=== PATIENT | female | born 1935 | race Caucasian/White ===

== ENCOUNTER 2016-03-30 17:39 | Inpatient (IN) | payer MEDICARE ==
[~2016-03-30] VITALS: Ht 170.2 cm; Wt 85.0 kg
--- NOTE | 2016-03-31 16:45 | HP ---
ADMIT: 03/30/2016 RM/LOC: 521 [facility] MR#: [id number] [address] [address] PRISCA ANTONIO [address] [place] [address] History and Physical SEX: F AGE: 81 : 1935 DATE OF SERVICE: CHIEF COMPLAINT: Weakness, lightheadedness. HISTORY OF PRESENT ILLNESS: The patient is a fantastic 81-year-old female, well-known to me from clinic. Recently had been having increasing weakness, dizziness, orthostasis. Really worsening over the last 2 weeks. I saw her in the office 2 weeks ago, we slowly been down titrating her blood pressure medications. She stopped these entirely. Her dizziness and lightheadedness got much worse today. Had a hemoglobin over in the office was 8.3. The patient otherwise denies any recent fevers, chills, nausea, vomiting. Normal oral intake. Now reports she has had a history over the last 6 weeks or so of maroon-colored stools, intermittent diarrhea, and constipation. She was in the emergency room in November after recent initiation of Eliquis for her newly discovered AFib with an episode of lower GI bleed at that time. It was there for a short period of time, this sounds like she had gotten better when she had held her Eliquis for a short period of time. Otherwise, denies any new palpitations. No unexpected weight loss. No unexpected abdominal pain. PAST MEDICAL HISTORY: 1. AFib. 2. History of solitary kidney, status post nephrectomy. 3. Hypertension. 4. Hyperlipidemia. 5. Chronic kidney disease, stage 3. 6. History of Polo's esophagus. 7. Diet-controlled diabetes, type 2. 8. GERD. 9. Osteoporosis. 10.History of renal cell carcinoma, status post nephrectomy. MEDICATIONS: She is on: 1. Eliquis 2.5 mg b.i.d. 2. Aspirin 81 mg a day. 3. Atenolol 25 mg a day. 4. Atorvastatin. 5. Vitamin D. 6. Nexium. 7. She has recently been holding her iron. 8. Flecainide 50 mg p.o. b.i.d. 9. Hyzaar, but she recently stopped this. ALLERGIES: PENICILLIN, SULINDAC, VOLTAREN. PAST SURGICAL HISTORY: She has history of nephrectomy, appendectomy, tonsillectomy, cataracts. FAMILY HISTORY: Significant for heart disease in her father. Ovarian cancer in her sister as well as another sister with thyroid cancer. Brother with ADMIT: 03/30/2016 RM/LOC: 521 [facility] MR#: [id number] [address] [address] PRISCA ANTONIO [address] [place] [address] History and Physical SEX: F AGE: 81 : 1935 esophageal cancer and at age 55. No known history of colon cancer. SOCIAL HISTORY: Former smoker many, many years ago. Lives home alone. REVIEW OF SYSTEMS: As per HPI. Otherwise, completely reviewed and negative. PHYSICAL EXAMINATION: VITAL SIGNS: Blood pressure 136/57, pulse 73, respiratory rate 22, O2 sat 98% on room air. GENERAL: She is alert and oriented x3, in no acute distress, pleasant as always. HEENT: Normocephalic, atraumatic. Pupils are equal, round, and reactive to light and accommodation. Extraocular muscles intact. Dry mucous membranes. NECK: No lymphadenopathy. Trachea midline. LUNGS: Clear to auscultation bilaterally. No wheezes, rales, or rhonchi. HEART: Regular rate and rhythm. No murmurs, rubs, or gallops. ABDOMEN: Soft, nontender, nondistended. Bowel sounds present. EXTREMITIES: No cyanosis, clubbing, or edema. MUSCULOSKELETAL: 5/5 strength in all 4 extremities. NEUROLOGICAL: No focal deficits noted. Cranial nerves II through XII grossly intact. LABORATORY AND X-RAY DATA: Her hemoglobin here is 8.2, creatinine is 1.5. Other lab work reviewed. ASSESSMENT: 1. Gastrointestinal bleed, likely lower gastrointestinal bleed. 2. Atrial fibrillation. 3. Solitary kidney with chronic kidney disease, stage 3. 4. Hypertension. 5. Diet-controlled diabetes. PLAN: At this point in time, we will hold her anticoagulation. We will watch serial hemoglobins. She had one at noon today and again one this evening. We will check one in the morning. If it drops, we will give her transfusion. I attempted to give her transfusion even if worse given her symptoms of ADMIT: 03/30/2016 RM/LOC: 521 [facility] MR#: [id number] [address] [place] [id number] PRISCA ANTONIO [address] [place] [address] History and Physical SEX: F AGE: 81 : 1935 orthostasis. We will see if that improves with some hydration overnight. Also, hydrate her in anticipation for prep. Given her worsening symptoms and her ongoing maroon stools over the last couple weeks, I think she will likely warrant colonoscopy. This is why General Surgery see her. She should get it done while inpatient given the severity of symptoms at home and ongoing bleeding. We will hold her anticoagulation indefinitely until this is taken care of, and we will otherwise continue to hold her antihypertensives for the time being. Continue her antiarrhythmics for atrial fibrillation. The patient is understanding and agreeable We will see what Surgery has to say about this plan for this extremely fantastic woman. Timmy Griffin MD/ vince JOB #: [id number] CC: Timmy Griffin, Attending Physician Timmy Griffin, Family Physician
--- NOTE | 2016-04-07 10:08 | CO ---
ADMIT: 03/30/2016 RM/LOC: 521 [facility] MR#: [id number] [address] [address] PRISCA KRAUSE [address] [place], [place] [address] Consultation SEX: F AGE: 81 : 1935 DATE OF CONSULTATION: 03/31/2016 ATTENDING PHYSICIAN: Timmy Griffin CONSULTING PHYSICIAN: Pavan Krause MD REASON FOR VISIT: Anemia with GI bleed. HISTORY OF PRESENT ILLNESS: This patient is an 81-year-old female, basically came in because she was feeling weak and lightheaded, found to have a hemoglobin over at the [facility] office of 8.3, and now in the high 6 range of 6.8. She had been having some intermittent diarrhea, constipation, some maroon stools. She is on Eliquis for atrial fibrillation that was recently discovered. She had some bleeding when they originally put her on that. They stopped it, did improve and put her back on it. She also has a history of previous nephrectomy and solitary kidney, hypertension, hyperlipidemia, history of Polo esophagus, GERD, osteoporosis, and diabetes. CURRENT MEDICATIONS: Please see chart, but she is on: 1. Chronic Nexium. 2. Eliquis. 3. Aspirin. 4. Atenolol. 5. Atorvastatin. 6. Vitamin D. 7. Flecainide. 8. Hyzaar. ALLERGIES: VOLTAREN, SULINDAC, AND PENICILLIN. PAST SURGICAL HISTORY: She has also had appendectomy, tonsillectomy, cataract, and she has had several scopes, her last one being by myself here in 2013 that was normal as well as an upper scope as well. FAMILY HISTORY: She has a brother with a history of esophageal cancer. No known colon cancer, I do not believe history. SOCIAL HISTORY: Smoked many years ago. Currently lives at home and is retired. REVIEW OF SYSTEMS: Positive for the above, but otherwise no chest pain or shortness of breath. PHYSICAL EXAMINATION: GENERAL: She is alert. She is oriented. Afebrile. VITAL SIGNS: Appear stable. HEENT: Her sclerae are nonicteric. Her extraocular muscles are intact. CHEST: Clear anteriorly. HEART: Regular rate and rhythm. ABDOMEN: Soft. No significant masses. No organomegaly. She does have an ADMIT: 03/30/2016 RM/LOC: 521 [facility] MR#: [id number] [address] [address] PRISCA KRAUSE [address] [place] [address] Consultation SEX: F AGE: 81 : 1935 incisional hernia from her previous nephrectomy, but no signs of obstruction or incarceration. EXTREMITIES: Without clubbing, cyanosis, or edema. ASSESSMENT/PLAN: Gastrointestinal bleed and anemia. At this point, she just came in at 3 in the morning with a low hemoglobin. She needs blood and some resuscitation and then we will look at bowel prep. I am not going to try bowel prep on her today in that condition and then hopefully plan on doing upper and lower scopes on . She has not been taking any ulcerogenic type medications, but we will look at her stomach as well with this history and should be a low chance of any kind of significant findings in the colon unless there is some AVM or diverticulum or something of that nature that would be bleeding. This all been discussed with her and Dr. Griffin. Pavan Krause MD/ vince JOB #: [id number] CC: Timmy Griffin, Attending Physician Timmy Griffin, Family Physician
--- NOTE | 2016-04-10 08:46 | DS ---
ADMIT: 03/30/2016 RM/LOC: 521 [facility] MR#: [id number] [address] [address] PRISCA KRAUSE [address] [place] [address] Discharge Summary SEX: F AGE: 81 : 1935 ADMISSION DATE: 03/30/2016 DISCHARGE DATE: 04/03/2016 CONSULTATIONS: Dr. Krause. PROCEDURE: She underwent endoscopy with intervention on an AVM in her colon. FINAL DIAGNOSES: 1. GI (gastrointestinal) bleed secondary to AVM (arteriovenous malformation) requiring transfusion. 2. Atrial fibrillation. 3. Acute blood loss anemia. 4. Diabetes type 2. REASON FOR ADMISSION: The patient is an 81-year-old female, presented to the emergency room after overall feeling worse and newfound anemia. Some melena. Admitted for further stabilization. HOSPITAL COURSE: The patient's hemoglobin was trended. She required transfusion on 2 occasions. Seen by general surgery. Underwent the above- mentioned colonoscopy. Found to have an AVM. He had intervention on it. Hemoglobin was watched. It improved. Stabilized. She felt safe and stable for discharge to home. DISCHARGE INSTRUCTIONS: Please see discharge MAR which I reviewed. FOLLOWUP: We will see her back to clinic shortly within a week or two. Repeat labs at followup. Timmy Griffin MD/ vdg JOB #: [id number] CC: Timmy Griffin MD, Attending Physician Timmy Griffin MD, Family Physician
--- NOTE | 2016-04-14 12:58 | ER ---
ADMIT: 03/30/2016 RM/LOC: 521 [facility] MR#: [id number] 2620 [facility] [address] [place] [address] PRISCA ANTONIO [address] [place] [address] Emergency Room Report SEX: F AGE: 81 : 1935 DATE: 03/30/2016 HISTORY OF PRESENT ILLNESS: An 81-year-old female who has had 2 or 3 weeks of dark tarry stools. No pain. No vomiting. Admittedly dark tarry stools. She saw her primary today, had labs drawn today and showed a hemoglobin of 8. She subsequently called the ambulance, comes here. [place] that she needed colonoscopy tonight. She states she just cannot "survive with a hemoglobin of 8 once she knew that." PAST MEDICAL HISTORY: Significant for atrial flutter. She has been on Eliquis. She apparently has had problems with GI bleeds in the past. She has had colonoscopies in the past. She states they have always been negative. She also has a history of renal cell cancer. PHYSICAL EXAMINATION: GENERAL: Reveals an elderly female, in no acute distress. She is pallorous. LUNGS: Clear to auscultation. CARDIOVASCULAR: Regular rate and rhythm. ABDOMEN: Soft, nontender, with positive bowel sounds. EXTREMITIES: Pallorous as mentioned. RESEARCH PROFESSIONAL: No focal findings. ASSESSMENT AND PLAN: The patient is being admitted with gastrointestinal bleed. Donald Davis MD/ vince JOB #: [id number] CC: Timmy Griffin MD, Attending Physician Timmy Griffin MD, Family Physician
--- NOTE | 2016-05-16 12:25 | OR ---
ADMIT: 03/30/2016 RM/LOC: 521 [facility] MR#: [id number] [address] [id number] PRISCA KRAUSE [address] [place] [address] Operative/Delivery Room Report SEX: F AGE: 81 : 1935 CORRECTED: 05/11/2016 1329 BRENT CORRECTED: 05/12/2016 1003 [facility] SURGERY DATE: 04/02/2016 SURGEON: Pavan Krause MD PREOPERATIVE DIAGNOSIS: Anemia, evidence of gastrointestinal bleed. POSTOP DIAGNOSIS: Normal-appearing esophagus, stomach, duodenum. Colon normal other then in picture 4 on the first set you can see an AVM in the proximal right colon. PROCEDURES: 1. EGD. 2. Colonoscopy with biopsies of this area of AVM. 3. Cauterization of this area of AVM and a Resolution clip was placed at this area of AVM. ANESTHESIA: MAC anesthesia. ESTIMATED BLOOD LOSS: 5 mL or less. INDICATION FOR PROCEDURE: Please see H and P. After the risks, benefits, possible complications, and the alternatives had been explained, and informed consent had been obtained, the patient was taken back to the procedure room, underwent sedation. The flexible EGD scope was introduced, slowly maneuvered down the esophagus. GE junction seen in the first picture and appears normal. Maneuvered through the stomach down into the second portion of the duodenum, seen in the third picture and it appears normal. I did not see any evidence of blood, mass, lesions, or ulcers within the duodenum, duodenal bulb, gastric antrum and body otherwise looked normal. She does have a few benign-appearing fundic gland polyps. No significant hiatal hernia. The scope was slowly withdrawn inspecting the remainder of the esophagus on the way out and that portion of the procedure was terminated. The flexible colonoscope was then introduced and slowly maneuvered all the way over to the cecum which was seen quite nicely in picture #1 and the ileocecal valve in the left lower corner of the picture there. I was able to make it into the terminal ileum quite nicely for quite a ways as seen in picture #2. Saw no signs of any blood or lesions anywhere there. Came back, picture 3 shows again the cecum just above it with the ileocecal valve about 6 o'clock position and then as you just come up a little bit above that fold, you can see this area of what appears to be an AVM in the proximal right colon there in picture #4. I actually did a biopsy and when I did that biopsy, this thing ADMIT: 03/30/2016 RM/LOC: 521 [facility] MR#: [id number] [address] [id number] PRISCA KRAUSE [address] [place] [address] Operative/Delivery Room Report SEX: F AGE: 81 : 1935 did bleed and bled pretty well. So I think this is the source. I was then able to cauterize it with the hot biopsy forceps. I then took a Resolution clip and placed it across the area, watched it for several minutes, saw no signs of any ongoing or continuing bleeding as seen in the second set of pictures, there. The remainder of the ascending, transverse, descending, sigmoid, and rectum otherwise appeared okay and normal. The scope was removed and the procedure terminated. Tolerated it well, was taken to recovery room in stable and satisfactory condition. Pavan Krause MD/ vince JOB #: [id number] CC: Timmy Griffin MD, Attending Physician Timmy Griffin MD, Family Physician Timmy Griffin MD CORRECTED: 05/11/2016 1329 BRENT CORRECTED: 05/12/2016 1003 [facility]
== END 2016-04-03 14:40 | disposition home or self-care (01) | DRG 982 ==
LOC: ER 17:39 → 5MS 19:10
PROVIDERS: ADMIT Internal Medicine
PROC: 30233N1 Transfusion of Nonautologous Red Blood Cells into Peripheral Vein, Percutaneous Approach (ICD-10-PCS; 2016-03-31)
PROC: 0DBF8ZX Excision of Right Large Intestine, Via Natural or Artificial Opening Endoscopic, Diagnostic (ICD-10-PCS; principal; 2016-04-02)
PROC: 0W3P8ZZ Control Bleeding in Gastrointestinal Tract, Via Natural or Artificial Opening Endoscopic (ICD-10-PCS; principal; 2016-04-02)
PROC: 0DJ08ZZ Inspection of Upper Intestinal Tract, Via Natural or Artificial Opening Endoscopic (ICD-10-PCS; principal; 2016-04-02)
PROC: 0DV Gastrointestinal System, Restriction (ICD-10-PCS; principal; 2016-04-02)
DX: Q27.33 Arteriovenous malformation of digestive system vessel (principal); I48.92 Unspecified atrial flutter; E11.22 Type 2 diabetes mellitus with diabetic chronic kidney disease; K92.1 Melena; D62 Acute posthemorrhagic anemia; R19.7 Diarrhea, unspecified; K59.00 Constipation, unspecified; I48.91 Unspecified atrial fibrillation; E78.5 Hyperlipidemia, unspecified; N18.3 Chronic kidney disease, stage 3 (moderate); I12.9 Hypertensive chronic kidney disease with stage 1 through stage 4 chronic kidney disease, or unspecified chronic kidney disease; K22.70 Barrett's esophagus without dysplasia; K21.9 Gastro-esophageal reflux disease without esophagitis; M81.0 Age-related osteoporosis without current pathological fracture; Z79.82 Long term (current) use of aspirin; Z90.5 Acquired absence of kidney; Z85.528 Personal history of other malignant neoplasm of kidney; Z87.891 Personal history of nicotine dependence

== ENCOUNTER 2016-04-05 14:06 | Inpatient (IN) | payer MEDICARE ==
[~2016-04-05] VITALS: Ht 170.2 cm; Wt 86.4 kg
[2016-04-05] MEDS ORDERED: FEOSOL-DPS325 MG PO (14:57)
[2016-04-05] MEDS ORDERED: LIPITOR DPS40 MG PO (14:57)
[2016-04-05] MEDS ORDERED: ROCALTROL DP0.25 MCG PO (14:58)
[2016-04-05] MEDS ORDERED: TAMBOCOR DPS50 MG PO (14:58)
[2016-04-05] MEDS ORDERED: TENORMIN-DPS25 MG PO (14:58)
[2016-04-05] MEDS ORDERED: NEXIUM40 MG PO (14:58)
--- NOTE | 2016-04-06 13:01 | ER ---
ADMIT: 04/05/2016 RM/LOC: 409 [facility] MR#: [id number] [address] [address] PRISCA ANTONIO [address] [facility] [place] [address] Emergency Room Report SEX: F AGE: 81 : 1935 DATE: 04/05/2016 The patient is an 81-year-old female with a past medical history of atrial fibrillation, lower GI bleeding, anemia, renal cancer, status post blood transfusion and EGD and colonoscopy 2 days ago. The patient came to the ER with chief complaint of feeling short of breath for 1 day and being febrile, 102 temperature Fahrenheit. The patient denies any chest pain. The patient also complains of some yellow sputum which has started for the last day. The patient also complains of watery diarrhea after the colonoscopy prep. In the ER, the patient had temperature of 102 and received Tylenol. Sepsis workup was started. The patient had stable blood pressure, the patient was not tachypneic. The oropharynx was normal. Lungs, the patient had bilateral wheezing with questionable mild crackles in the right anterior lung base. The patient had normal cardiac sounds, the pulses are irregularly irregular. Abdomen was soft and there was no swelling or edema in the legs. The patient had normal peripheral pulses. EKG and cardiac enzymes were done. The patient had negative troponin. D-dimer was mildly elevated, possibly due to the recent procedure. WBC was 11 with left shift, hemoglobin was 9.5. confirming with the hemoglobin of mid 8s by the time the patient was discharged. Chest x- ray was questionable with right middle lobe infiltration versus atelectasis. The patient was started on levofloxacin. The patient received a breathing treatment in the ER. The patient had a lactate of 2.2. Internal Medicine was consulted and the patient was admitted for further follow ups and treatments of questionable right lung pneumonia, atelectasis, rule out sepsis, postprocedural/postsurgical fever. Rodrigue Alvarado MD/ vince JOB #: [id number] CC: Timmy Griffin MD, Attending Physician Timmy Griffin MD, Family Physician
--- NOTE | 2016-04-08 19:46 | HP ---
ADMIT: 04/05/2016 RM/LOC: 409 [facility] MR#: [id number] [address] [address] PRISCA KRAUSE [address] [facility] [place], [place] [address] History and Physical SEX: F AGE: 81 : 1935 DATE OF SERVICE: CHIEF COMPLAINT: Shortness of breath. HISTORY OF PRESENT ILLNESS: Mrs. Krause is an 81-year-old female, originally from the [facility]. She does follow with my partner, Dr. Timmy Griffin. She was just discharged approximately 48 hours ago secondary to acute blood loss anemia associated with gastrointestinal bleeding secondary to an AVM. She is off her anticoagulation at this point. She was discharged to home. She became increasingly short of breath shortly after discharge. She did call her friend, they brought her to the ER. She was with wheezing and coughing and did have a chest x-ray, which appeared to be a right middle lower lobe consolidation. She was also with a temperature of 102. Therefore, she was initiated on antibiotics and did have appropriate laboratory evaluation and did also receive some gentle IV fluids as well. I evaluated her at her bedside, in the ER, she endorses the above history. She is not in respiratory distress at this time. PAST MEDICAL HISTORY: 1. Atrial fibrillation. 2. 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 3. History of a solitary kidney. She had a nephrectomy in the past; renal cell carcinoma is the reason for nephrectomy. 4. Hypertension. 5. Hyperlipidemia. 6. History of chronic kidney disease. 7. Type 2 diabetes mellitus. 8. GERD. 9. Osteoporosis. 10.Chronic lung disease secondary to exposure as a child. 11.History of tobacco abuse. 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 MEDICATIONS: 1. Atorvastatin 40 mg daily. 2. Ferrous sulfate 325 mg every other day. 3. Atenolol 25 mg daily. 4. Nexium 40 mg daily. 5. Flecainide 50 mg twice daily. 6. Calcitriol on Wednesday, Wednesday, Wednesday. ALLERGIES: PENICILLIN, SULINDAC, VOLTAREN, PROPOFOL, FENTANYL, AND MORPHINE. FAMILY HISTORY: Coronary artery disease in her dad. Ovarian cancer in her sister. Thyroid cancer in another sister and brother with esophageal cancer. SOCIAL HISTORY: She is a former smoker. Quit smoking 37 years ago. She is a recovering alcoholic. She lives at home alone. She is retired from ADMIT: 04/05/2016 RM/LOC: 409 [facility] MR#: [id number] [address] [address] PRISCA KRAUSE [address] [place] [address] History and Physical SEX: F AGE: 81 : 1935 REVIEW OF SYSTEMS: Complete review of systems reviewed per HPI. PHYSICAL EXAMINATION: VITAL SIGNS: 146/53, pulse 73, respiratory rate is 10, 95% on room air. GENERAL: She is alert and oriented x3. She is in no acute distress. She has a cough. HEENT: Normocephalic, atraumatic. Eyes, extraocular muscles intact. Pupils equal and responsive to light. No nasal discharge. NECK: Supple. LUNGS: Diffuse rhonchi and wheezing bilaterally. ABDOMEN: Soft, nontender, and nondistended. She does have a ventral abdominal hernia. HEART: Regular. EXTREMITIES: No clubbing or cyanosis. No edema. PSYCHIATRIC: She is a bit of a on her own admission anxious person and I do agree with that assessment. She is not having any other symptoms. She is not having suicidal or homicidal ideations. No hallucinations. LABORATORY DATA: EKG is sinus. Urine is with blood and protein. No rhea UTI. White blood cells 11.1, hemoglobin is 9.5, platelets are 367. Blood cultures drawn and pending. INR is 1.09. Lactic acid is 2.2. Sodium is 144, potassium 3.7, chloride is 110, bicarb is 24, BUN is 17, creatinine is 1.5, glucose 136, calcium is 8.3, phos is 2.1. Bilirubin 0.4, total protein 6.8, albumin is 3.2, AST is 24, ALT is 23, mag is 1.8. CK is 388, procalcitonin is 0.05. Chest x-ray appears to be a right middle lobe consolidation. ASSESSMENT AND PLAN: 1. Healthcare-associated pneumonia. 2. Lactic acidosis. 3. Type 2 diabetes mellitus. 4. Stage 3 chronic kidney disease. 5. Iron deficiency anemia. 6. Atrial fibrillation. The patient likely has a degree of chronic lung disease secondary to sounds to be some exposures as a child potentially as well as she did have an extensive smoking history; however, she did quit 37 years ago. She does have diffuse wheezing on exam. I think Levaquin is a reasonable choice picked in the ER, would like to continue this. Place her on DuoNeb 4 times daily as well as ADMIT: 04/05/2016 RM/LOC: 409 [facility] MR#: [id number] [address] [address] PRISCA KRAUSE [address] [place] [address] History and Physical SEX: F AGE: 81 : 1935 DuoNebs p.r.n. I will give her 40 mg of prednisone by mouth and going to just recheck her lactic acid at 7:00 tonight. She will be maintained on SCDs and EVELYN hose. She will not get pharmacologic prophylaxis as she just had a gastrointestinal bleed. We will have Pharmacy dose the Levaquin as well as vancomycin. She is a full code. Discussed plan with the patient, expressed understanding, was in agreement, and had no further questions. Santos Gay MD/ vince JOB #: [id number] CC: Timmy Griffin, Attending Physician Timmy Griffin, Family Physician Timmy Griffin MD
--- NOTE | 2016-04-28 09:35 | DS ---
ADMIT: 04/05/2016 RM/LOC: 409 MR#: [id number] [address] [address] PRISCA ANTONIO [address] [place], [place] [address] Discharge Summary SEX: F AGE: 81 : 1935 ADMISSION DATE: 04/05/2016 DISCHARGE DATE: 04/11/2016 I spent 35 minutes in the discharge and coordination of care of this patient. DISCHARGE DIAGNOSES: 1. Shortness of breath. 2. Pneumonia, suspect viral. 3. Healthcare-associated pneumonia. 4. Lactic acidosis. 5. Diabetes mellitus type 2. 6. Stage 3 chronic kidney disease. 7. Iron-deficiency anemia. 8. Atrial fibrillation. 9. Recent GI (gastrointestinal) bleed. 10.History of osteoporosis. 11.History of gastroesophageal reflux disease. 12.History of solitary kidney, status post nephrectomy secondary to renal cell carcinoma in the past. 13.History of hyperlipidemia. 14.Diarrhea. HOSPITAL COURSE: The patient was admitted on 04/05 with shortness of breath. She was admitted, treated for healthcare-acquired pneumonia. Was given IV antibiotics as well as some IV steroids. She overall did quite well. She did not require any transfusion during her hospital stay. She actually got somewhat constipated and then started having some diarrhea. Overall, the patient is doing much better. The plan was for her to be discharged over to [facility] [place] for further rehab. DISCHARGE MEDICATIONS: 1. Cozaar 50 mg p.o. daily. 2. Prednisone 40 mg p.o. daily x5. 3. Ferrous sulfate 325 p.o. daily every other day. 4. Lipitor 40 mg p.o. at bedtime. 5. MiraLAX 17 g p.o. daily, hold if diarrhea. 6. Organidin 400 mg p.o. t.i.d. 7. Protonix 40 mg p.o. daily. 8. Rocaltrol 0.25 p.o. Wednesday, Wednesday and Wednesday every night. 9. Tambocor 50 mg p.o. q.12 hours. ADMIT: 04/05/2016 RM/LOC: 409 MR#: [id number] [address] [address] PRISCA ANTONIO [address] [place] [address] Discharge Summary SEX: F AGE: 81 : 1935 10.Tenormin 25 mg p.o. q.a.m. 11.Tessalon Perles 100 mg p.o. q.8 hours. 12.DuoNeb q.i.d. 13.Imodium p.r.n. 14.Maalox p.r.n. 15.Surfak p.r.n. 16.Tylenol p.r.n. 17.DuoNeb p.r.n. DISCHARGE INSTRUCTIONS: She is to follow up with Dr. Griffin in one week. She is to have a BMP and a CBC on Wednesday which should be faxed over to Dr. Griffin. She is to have PT, OT and speech therapy to see her. Shona Rivers MD/ jeniffer JOB #: [id number] CC: Timmy Griffin MD, Attending Physician Timmy Griffin MD, Family Physician
== END 2016-04-11 12:35 | DRG 194 ==
LOC: ER 14:06 → 4PCU 17:05
PROVIDERS: ADMIT Internal Medicine
DX: J12.9 Viral pneumonia, unspecified (principal); E87.2 Acidosis; E11.22 Type 2 diabetes mellitus with diabetic chronic kidney disease; I48.91 Unspecified atrial fibrillation; D62 Acute posthemorrhagic anemia; N18.3 Chronic kidney disease, stage 3 (moderate); D50.9 Iron deficiency anemia, unspecified; F10.21 Alcohol dependence, in remission; I12.9 Hypertensive chronic kidney disease with stage 1 through stage 4 chronic kidney disease, or unspecified chronic kidney disease; E78.5 Hyperlipidemia, unspecified; K59.00 Constipation, unspecified; R19.7 Diarrhea, unspecified; K21.9 Gastro-esophageal reflux disease without esophagitis; M81.0 Age-related osteoporosis without current pathological fracture; J98.4 Other disorders of lung; Z87.891 Personal history of nicotine dependence; Z85.528 Personal history of other malignant neoplasm of kidney; Z90.5 Acquired absence of kidney; Z82.49 Family history of ischemic heart disease and other diseases of the circulatory system; Q27.33 Arteriovenous malformation of digestive system vessel